=== PATIENT | male | born 1930 | race Hispanic/Latino ===

== ENCOUNTER 2017-09-04 17:21 | Emergency (ER) | payer MEDICARE ==
[~2017-09-04 17:21] MED LIST: ASCO250T5 PO; BACL10TA PO; CELE-84 PO; CETI10TA86 PO; CLON0.1T PO; ISOSORBIDE 60 MG PO; LISI10TA7 PO; METOPROLOL PO; RIVA20TA PO; TAMS-1 PO
[2017-09-04 18:38] LABS: BILIRUBIN,URINE Negative (NEGATIVE); COLOR,URINE Yellow (YELLOW); GLUCOSE, URINE (UA) Negative (NEGATIVE); KETONES,URINE Negative (NEGATIVE); LEUKOCYTE ESTERASE ,URINE Negative (NEGATIVE); NITRATE,URINE Negative (NEGATIVE); OCCULT BLOOD,URINE Negative (NEGATIVE); PROTEIN,URINE Negative (NEGATIVE); UROBILINOGEN,URINE 0.2 mg/dL (0.2-1.0)
[2017-09-04 18:39] LABS: BASOPHILS % (AUTO) 0.5 % (0.0-5.0); EOSINOPHILS % (AUTO) 0.8 % (0.0-8.0); HEMATOCRIT 33.3 % (42-54); LYMPHOCYTES % (AUTO) 29.6 % (21.0-51.0); MEAN CORPUSCULAR HEMOGLOBIN 32.4 pg (27.0-33.0); MEAN CORPUSCULAR HGB CONC 36.1 g/dL (32.0-36.0); MEAN CORPUSCULAR VOLUME 89.5 fL (79-99); MONOCYTES % (AUTO) 10.4 % (3.0-13.0); NEUTROPHILS % (AUTO) 58.7 % (40.0-77.0); PLATELET COUNT (AUTO) 147 K/uL (130-400); RED BLOOD CELL COUNT(AUTO) 3.72 MIL/uL (4.50-6.20); RED CELL DISTRIBUTION WIDTH 13.5 % (11.0-15.5); WHITE BLOOD COUNT (AUTO) 3.4 K/uL (4.8-10.8)
[2017-09-04 18:43] LABS: APPEARANCE,URINE CLEAR (CLEAR)
[2017-09-04 18:52] LABS: CREATININE 0.9 mg/dL (0.5-1.5); POTASSIUM 4.5 mmol/L (3.5-5.1)
[2017-09-04 18:56] LABS: ALBUMIN 3.6 g/dL (3.5-5.0); BILIRUBIN,TOTAL 0.5 mg/dL (0.2-1.0); TOTAL PROTEIN, SERUM 7.2 g/dL (6.0-8.3)
[2017-09-04] MEDS ORDERED: IOPAMIDOL-370 100 ML VIAL IV ONE (19:06)
[2017-09-04] MEDS ORDERED: ONDANSETRON HCL MDV 20ML 2 MG/ML VIAL ONE (20:12)
[2017-09-04] MEDS ORDERED: MORPHINE SULFATE 4 MG/1ML SYG ONE (20:13)
== END 2017-09-04 22:34 | disposition home or self-care (01) ==
LOC: EDH 17:21
DX: J10.1 Influenza due to other identified influenza virus with other respiratory manifestations (principal); K40.90 Unilateral inguinal hernia, without obstruction or gangrene, not specified as recurrent; E78.5 Hyperlipidemia, unspecified; I10 Essential (primary) hypertension; I25.10 Atherosclerotic heart disease of native coronary artery without angina pectoris; Z88.6 Allergy status to analgesic agent
CPT/HCPCS: 36415; 71045; 74177; 80053; 81003; 82550; 83690; 84484; 85025; 87040; 87804 ×2; 96361; 96374; 96375; 99285; J2270; Q9967

== ENCOUNTER 2018-06-19 07:05 | Emergency (ER) | payer MEDICARE ==
[~2018-06-19 07:05] MED LIST changes: +AMLO10TA7 PO; -CELE-84 PO; +CETI10TA57 PO; -CETI10TA86 PO; +DOCU-116 PO; +FAMO20TA8 PO; +ISOS30TA6 PO; -ISOSORBIDE 60 MG PO; +LACT10SO PO; +SIME80TA12 PO
[2018-06-19] MEDS ORDERED: SODIUM CHLORIDE 0.9% 500ML 500 ML IV ONE (07:54)
[2018-06-19 08:09] LABS: BASOPHILS % (AUTO) 0.6 % (0.0-5.0); EOSINOPHILS % (AUTO) 1.3 % (0.0-8.0); HEMATOCRIT 37.4 % (42-54); LYMPHOCYTES % (AUTO) 22.7 % (21.0-51.0); MEAN CORPUSCULAR HEMOGLOBIN 30.8 pg (27.0-33.0); MEAN CORPUSCULAR HGB CONC 33.8 g/dL (32.0-36.0); MEAN CORPUSCULAR VOLUME 91.3 fL (79-99); MONOCYTES % (AUTO) 11.4 % (3.0-13.0); PLATELET COUNT (AUTO) 128 K/uL (130-400); RED CELL DISTRIBUTION WIDTH 13.1 % (11.0-15.5); WHITE BLOOD COUNT (AUTO) 2.7 K/uL (4.8-10.8)
[2018-06-19 08:14] LABS: APPEARANCE,URINE Clear (CLEAR); BILIRUBIN,URINE Negative (NEGATIVE); COLOR,URINE Yellow (YELLOW); GLUCOSE, URINE (UA) Negative (NEGATIVE); KETONES,URINE Negative (NEGATIVE); LEUKOCYTE ESTERASE ,URINE Negative (NEGATIVE); NITRATE,URINE Negative (NEGATIVE); OCCULT BLOOD,URINE Negative (NEGATIVE); PH,URINE 7.5 (5.0-8.0); PROTEIN,URINE Negative (NEGATIVE); UROBILINOGEN,URINE 0.2 mg/dL (0.2-1.0)
[2018-06-19 08:34] LABS: POTASSIUM 4.4 mmol/L (3.5-5.1)
[2018-06-19 08:35] LABS: BASOPHILS % (MANUAL) 1 % (0-2); EOSINOPHILS % (MANUAL) 2 % (1-6); LYMPHOCYTES % (MANUAL) 20 % (22-44); MAN.DIFF COMMENT-IMPRESSION MANUAL DIFFERENTIAL; MONOCYTES % (MANUAL) 9 % (2-9); PLATELET MORPHOLOGY COMMENT ADEQUATE; REACTIVE LYMPHOCYTES 1 % (0-0); SEGMENTED NEUTROPHILS % 67 % (40-70)
[2018-06-19 08:40] LABS: ALBUMIN 3.8 g/dL (3.5-5.0); BILIRUBIN,TOTAL 0.6 mg/dL (0.2-1.0); TOTAL PROTEIN, SERUM 7.2 g/dL (6.0-8.3)
== END 2018-06-19 11:15 | disposition home or self-care (01) ==
LOC: EDH 07:05
DX: R53.1 Weakness (principal); R42 Dizziness and giddiness; I10 Essential (primary) hypertension; I25.10 Atherosclerotic heart disease of native coronary artery without angina pectoris; M19.90 Unspecified osteoarthritis, unspecified site; E78.5 Hyperlipidemia, unspecified; Z90.49 Acquired absence of other specified parts of digestive tract; Z98.890 Other specified postprocedural states; Z88.5 Allergy status to narcotic agent
CPT/HCPCS: 36415; 70450; 80053; 81003; 83690; 84484; 85025; 93005; 99284; J7040

== ENCOUNTER 2018-07-15 15:30 | Observation (INO) | payer MEDICARE ==
[~2018-07-15] VITALS: Ht 180.3 cm; Wt 78.5 kg
[2018-07-15 16:15] LABS: BASOPHILS % (AUTO) 0.9 % (0.0-5.0); EOSINOPHILS % (AUTO) 2.1 % (0.0-8.0); HEMATOCRIT 35.8 % (42-54); LYMPHOCYTES % (AUTO) 28.9 % (21.0-51.0); MEAN CORPUSCULAR HEMOGLOBIN 31.3 pg (27.0-33.0); MONOCYTES % (AUTO) 9.4 % (3.0-13.0); NEUTROPHILS % (AUTO) 58.7 % (40.0-77.0); PLATELET COUNT (AUTO) 162 K/uL (130-400); RED BLOOD CELL COUNT(AUTO) 3.89 MIL/uL (4.50-6.20); RED CELL DISTRIBUTION WIDTH 13.2 % (11.0-15.5); WHITE BLOOD COUNT (AUTO) 3.9 K/uL (4.8-10.8)
[2018-07-15 16:24] LABS: CREATININE 0.9 mg/dL (0.5-1.5); POTASSIUM 4.1 mmol/L (3.5-5.1)
[2018-07-15 16:28] LABS: INR 1.03 (0.85-1.15); PARTIAL THROMBOPLASTIN TIME 32.5 SEC (26.3-35.5); PROTHROMBIN TIME 10.8 SEC (9.6-11.6)
[2018-07-15 16:47] LABS: APPEARANCE,URINE Clear (CLEAR); BILIRUBIN,URINE Negative (NEGATIVE); COLOR,URINE Yellow (YELLOW); GLUCOSE, URINE (UA) Negative (NEGATIVE); KETONES,URINE Negative (NEGATIVE); LEUKOCYTE ESTERASE ,URINE Negative (NEGATIVE); NITRATE,URINE Negative (NEGATIVE); OCCULT BLOOD,URINE Negative (NEGATIVE); PH,URINE 6.5 (5.0-8.0); PROTEIN,URINE Negative (NEGATIVE); UROBILINOGEN,URINE 0.2 mg/dL (0.2-1.0)
[2018-07-15] MEDS ORDERED: LISINOPRIL 5 MG TABLET ONE (19:45)
[2018-07-15] MEDS ORDERED: CLONIDINE HCL 0.1 MG TABLET ONE (19:45)
--- NOTE | 2018-07-15 23:15 | NUR ---
ADMIT Pt received from ED, report given by BHAVESH Zamarripa. Awake, alert, and oriented x3. Denies any chest pain or shortness of breath. No IV noted, new 22g started to right hand, saline lock. Telemetry pack applied. Instructed on use of call light for any assistance, verbalized understanding.
[2018-07-16] VITALS (7 sets, daily range): BP systolic 117–177; BP diastolic 51–109
[2018-07-16 00:03] LABS: CREATINE KINASE, TOTAL 100 U/L (21-232); MYOGLOBIN 128 ng/mL (10-92); TROPONIN I < 0.04 ng/mL (0.00-0.06)
[2018-07-16] MEDS ORDERED: CLONIDINE HCL 0.1 MG TABLET PO SCH (02:30)
[2018-07-16] MEDS ORDERED: NON-FORMULARY MEDICATION 1 EACH (Lactulose 30 ML) PO PRN (02:30)
[2018-07-16 04:52] LABS: MEAN CORPUSCULAR HEMOGLOBIN 32.1 pg (27.0-33.0); MEAN CORPUSCULAR VOLUME 91.7 fL (79-99); NUCLEATED RED BLOOD CELLS 0.1 % (0.0-0.19); PLATELET COUNT (AUTO) 130 K/uL (130-400); RED BLOOD CELL COUNT(AUTO) 3.92 MIL/uL (4.50-6.20); RED CELL DISTRIBUTION WIDTH 13.3 % (11.0-15.5); WHITE BLOOD COUNT (AUTO) 3.5 K/uL (4.8-10.8)
[2018-07-16 05:12] LABS: ALANINE AMINOTRANSFERASE 16 U/L (12-78); ALBUMIN 3.4 g/dL (3.5-5.0); ASPARTATE AMINOTRANSFERASE 20 U/L (10-37); BILIRUBIN,TOTAL 0.4 mg/dL (0.2-1.0); CARBON DIOXIDE 23 mmol/L (21-32); CHLORIDE 104 mmol/L (101-111); CREATINE KINASE, TOTAL 83 U/L (21-232); CREATININE 0.9 mg/dL (0.5-1.5); GLOMERULAR FILTR. RATE CALC 85 mL/min (>60); GLUCOSE,RANDOM 94 mg/dL (70-105); MYOGLOBIN 127 ng/mL (10-92); POTASSIUM 4.1 mmol/L (3.5-5.1); SODIUM SERUM 136 mmol/L (136-145); TOTAL PROTEIN, SERUM 6.9 g/dL (6.0-8.3); TROPONIN I < 0.04 ng/mL (0.00-0.06); UREA NITROGEN, BLOOD 24 mg/dL (7-18)
[2018-07-16] MEDS ORDERED: SODIUM CHLORIDE 0.9% 10 ML VIAL IVP PRN (08:00)
[2018-07-16 08:08] LABS: CREATINE KINASE, TOTAL 82 U/L (21-232); MYOGLOBIN 136 ng/mL (10-92); TROPONIN I < 0.04 ng/mL (0.00-0.06)
[2018-07-16] MEDS ORDERED: METOPROLOL 25 MG PO SCH (09:00)
[2018-07-16] MEDS: DOCUSATE SODIUM 100 MG CAP PO SCH ×2 (09:49→20:22)
[2018-07-16] MEDS: FAMOTIDINE 20MG TAB 20 MG TAB PO SCH (09:49)
[2018-07-16] MEDS: TAMSULOSIN HCL 0.4 MG CAP.ER.24H PO SCH (09:49)
[2018-07-16] MEDS: ASCORBIC ACID 500 MG TAB PO SCH (09:49)
[2018-07-16] MEDS: AMLODIPINE BESYLATE 5 MG TAB PO SCH (09:49)
--- NOTE | 2018-07-16 20:25 | NUR ---
MEDS PT RESTING WELL IN BED. NO DISTRESS NOTED. DUE MEDS ADMINISTERED, TOLERATED WELL. KEPT RESTED AND COMFORTABLE. ENCOURAGED TO REST AND SLEEP. CALL LIGHT WITHIN REACH. WILL CONTINUE TO MONITOR.
[2018-07-16] MEDS ORDERED: CETIRIZINE HCL 5 MG TABLET PO SCH (21:00)
[2018-07-16] MEDS ORDERED: LISINOPRIL 10 MG TABLET PO SCH (21:00)
[2018-07-16] MEDS ORDERED: ISOSORBIDE MONO 30MG TAB SR PO SCH (21:00)
[2018-07-16] MEDS ORDERED: BACLOFEN 10 MG TABLET PO PRN (21:00)
[2018-07-16] MEDS ORDERED: SIMETHICONE 80 MG TAB.CHEW PO SCH (21:00)
--- NOTE | 2018-07-17 02:00 | NUR ---
ROUNDS PT RESTING WELL, FAIRLY ASLEEP WITH RESPIRATIONS EVEN AND UNLABORED. KEPT UNDISTURBED FOR NOW. WILL CONTINUE TO MONITOR.
[2018-07-17 04:00] VITALS: BP 143/61
--- NOTE | 2018-07-17 05:34 | NUR ---
ROUNDS PT RESTING WELL, FAIRLY ASLEEP. NO DISTRESS NOTED. KEPT UNDISTURBED FOR NOW. FOR MORE CARE.
[2018-07-17 08:00] VITALS: BP 115/77
[2018-07-17] MEDS: ASCORBIC ACID 500 MG TAB PO SCH (09:04)
[2018-07-17] MEDS: AMLODIPINE BESYLATE 5 MG TAB PO SCH (09:04)
[2018-07-17] MEDS: TAMSULOSIN HCL 0.4 MG CAP.ER.24H PO SCH (09:04)
[2018-07-17] MEDS: FAMOTIDINE 20MG TAB 20 MG TAB PO SCH (09:04)
[2018-07-17] MEDS: DOCUSATE SODIUM 100 MG CAP PO SCH (09:04)
[2018-07-17] MEDS: METOPROLOL 12.5 MG PO SCH (11:00)
[2018-07-17 12:00] VITALS: BP 144/66
--- NOTE | 2018-07-17 17:52 | NUR ---
PATIENT DISCHARGE PATIENT DISCHARGED, IV DISCONTINUED, CATHLON INTACT, BLEEDING CONTROLLED. PATIENT TOLERATED WITHOUT INCIDENT. DISCHARGE INSTRUCTIONS GIVEN TO BOTH PATIENT AND CAREGIVER GORAN GUERRA. INCLUDED HOLDING ELIQUIS FOR 1 WEEK AND METOPROLOL 12.5MG DAILY.
== END 2018-07-17 17:52 | disposition home or self-care (01) ==
LOC: EDH 15:30 → EDHIP 17:20 → 3AH 21:39
PROVIDERS: ADMIT Internal Medicine; ATTEND Internal Medicine
DX: R55 Syncope and collapse (principal); I25.10 Atherosclerotic heart disease of native coronary artery without angina pectoris; I48.2 Chronic atrial fibrillation; R42 Dizziness and giddiness; I10 Essential (primary) hypertension; E78.5 Hyperlipidemia, unspecified; I48.0 Paroxysmal atrial fibrillation; N40.0 Benign prostatic hyperplasia without lower urinary tract symptoms; R04.0 Epistaxis; G45.9 Transient cerebral ischemic attack, unspecified; Z86.73 Personal history of transient ischemic attack (TIA), and cerebral infarction without residual deficits; Z79.01 Long term (current) use of anticoagulants; Z82.49 Family history of ischemic heart disease and other diseases of the circulatory system; Z80.8 Family history of malignant neoplasm of other organs or systems; Z88.5 Allergy status to narcotic agent
CPT/HCPCS: 36415 ×2; 70450; 80048; 80053; 81003; 82550 ×3; 82948 ×2; 83874 ×3; 84443; 84484 ×4; 85025; 85027; 85610; 85730; 86900; 86901; 93005; 99284; G0378 ×49

== ENCOUNTER → 2018-07-25 | Outpatient (CLI) | payer MEDICARE | END | disposition home or self-care (01) | LOC: OIH 13:24 | PROVIDERS: ATTEND Internal Medicine | DX: M24.812 Other specific joint derangements of left shoulder, not elsewhere classified (principal) | CPT/HCPCS: 73030 ==

== ENCOUNTER → 2018-08-22 | Outpatient (CLI) | payer MEDICARE | END | disposition home or self-care (01) | LOC: OIH 09:44 | PROVIDERS: ATTEND Internal Medicine | DX: S43.401A Unspecified sprain of right shoulder joint, initial encounter (principal); X58.XXXA Exposure to other specified factors, initial encounter; Y93.89 Activity, other specified; Y92.89 Other specified places as the place of occurrence of the external cause; Y99.8 Other external cause status | CPT/HCPCS: 73030 ==